=== PATIENT | female | born 1980 | race Caucasian/White ===

== ENCOUNTER 2023-10-23 00:06 | Emergency (ER) | payer OTHER, SELFPAY ==
[2023-10-23 00:14] VITALS: BP 119/102; BMI 39.2
--- NOTE | 2023-10-23 00:15 | ED.GENMED ---
History of Present Illness
General
Chief Complaint: Change in Mental Status
Time Seen by Provider: 10/23/23 00:15
Travel History
Have you had any contact with someone who has COVID-19?: No
Do you have any symptoms of coronavirus? Fever > 100 degrees, chills, cough, shortness of breath, sore throat, loss of taste or smell, muscle aches, or headache?: No
History of Present Illness
History of Present Illness:
HPI: Patient came in by ambulance from a care home. She reportedly was seen outside on the yard rolling on the ground. She was brought back inside and EMS spoke to her but she was 'slightly confused'. She no longer has been taking Adderall
however she admits to taking 2 Adderall tonight. Took some Tylenol earlier for generalized pain.
EXAM:
GENERAL: Well appearing in no distress
HEENT: Moist oral mucosa, borderline mydriasis noted
CARDIOVASCULAR: No murmurs, normal heart rate, regular rhythm, No chest wall tenderness
PULMONARY: No respiratory distress, breath sounds are clear and equal
ABDOMEN: Soft with no peritoneal signs, no tenderness
NEUROLOGIC: Excellent strength all extremities, no coordination deficits
PSYCHIATRIC: Appropriate mental status, reasonable insight and judgement, there may be some very mild cognitive deficits but overall she appears to have the capacity to make her own decisions
EXTREMITIES: Nontender, no edema, moves all extremities equally
SKIN: The patient is transiently diaphoretic
TIME OF INITIAL ENCOUNTER: 12:15 AM
NUMBER AND COMPLEXITY OF PROBLEMS ADDRESSED AT THE ENCOUNTER
� Chronic conditions affecting care: Former smoker, high blood pressure, history of substance abuse
� Acute Exacerbation and/or Progression of Chronic Illness: This is an acute problem
� Differential Diagnosis includes: Change in mental status related to substance use, hypoglycemia, electrolyte abnormality
AMOUNT AND/OR COMPLEXITY OF DATA TO BE REVIEWED AND ANALYZED
� I performed an independent evaluation of and my interpretation is:
EKG:
CT:
X-rays:
Laboratory Studies: CBC unremarkable, chemistries relatively unremarkable, Tylenol/aspirin negative, UDS positive for methadone and amphetamine
Other:
� Review of other/old records: No old records available for review in [facility]
� Clinical information was obtained by an independent historian: EMS; we did contact somebody from the care home and then also the patient left message with Jenny, however as of now, we have been unsuccessful with
speaking to anybody else.
� Prescriptions/Medications Considered but not given:
� Further testing considered but not performed:
RISK OF COMPLICATIONS AND/OR MORBIDITY OR MORTALITY OF PATIENT MANAGEMENT
� Social determinants of health affecting care: Lives at a care home
� Discussion with other providers:
� Escalation of care including admission/observation vs risk of discharge considered: For the most part, patient's mental status appropriate. Basic labs relatively unremarkable. UDS is positive for amphetamine and methadone.
Symptoms may have been related to taking the 2 Adderall's. Basic labs relatively unremarkable. On reassessment at 2 AM, the patient appears to have appropriate mental status. Given the diaphoresis, IV fluids have been ordered. However labs are
relatively unremarkable. She has appropriate mental status for the most part. We did try to contact staff at the care home.
Phy Exam
Physical Exam
Physical Exam:
See HPI
Course
Orders/Labs/Results
Orders:
Orders
10/23/23 00:28
Alcohol Urgent
Complete Blood Count/With Diff Urgent
Comprehensive Metabolic Panel Urgent
Salicylate Urgent
Tylenol [Acetaminophen] Urgent
10/23/23 00:55
Fentanyl, Urine Urgent
Urine Drug Abuse Screen Urgent
Date Specimen was Collected: 10/23/23
Time Specimen was Collected: 00:54
10/23/23 01:55
Add On- LAB Urgent
Tests Added?: alcohol
10/23/23 02:10
0.9% Sodium Chloride 1000 ml [Nss] 1,000 ml IV BOLUS
Abnormal Lab Results
10/23/23 10/23/23
00:28 00:55
MCHC 32.0 L g/dL
(33.0-37.0)
BUN 30 H mg/dl
(7-17)
Glucose 101 H mg/dl
(70-99)
AST 52 H U/L
(14-36)
Total Protein 8.4 H g/dl
(6.3-8.2)
Salicylates < 1.0 L mg/dl
(2.0-20.0)
Urine Methadone Screen Positive H
(Negative)
Acetaminophen < 10 L ug/ml
(10-30)
Ur Amphetamines Screen Positive H
(Negative)
10/23/23 00:28
10/23/23 00:28
Vital Signs
Initial and Last Documented VS:
Initial Vital Signs
Temp Pulse Resp BP Pulse Ox
97.8 F 92 20 119/102 96
10/23/23 00:14 10/23/23 00:14 10/23/23 00:14 10/23/23 00:14 10/23/23 00:14
Last Documented Vital Signs
Temp Pulse Resp BP Pulse Ox
97.8 F 98 20 148/89 99
10/23/23 00:14 10/23/23 06:29 10/23/23 06:29 10/23/23 02:01 10/23/23 06:29
*Critical Care Note
Total Time (30-74mins, 75-104mins- exclusive of procedures): Not Applicable
ED Attending Note
-
Portions of this chart may have been created with voice recognition software.� Occasional wrong word or��sound alike� substitutions may have occurred due to the inherent limitations of voice recognition software.
Discharge Plan
Departure
Patient Disposition: Home (Routine Discharge)
Date of Disposition: 10/23/23
Time of Disposition: 02:34
Patient with high blood pressure during this ER visit?: Yes
Discharge Problem:
Acute alteration in mental status
Instructions: Altered Mental Status (DC)
Referrals:
Perico Interiano MD [Family Provider] -
Activity Restrictions/Additional Instructions:
Urine drug screen is positive for amphetamine and methadone. Tylenol and salicylate levels are undetected. Other basic labs unremarkable.
Interventions
Interventions:
*Risk Screen - Suicide Last Done: 10/23/23 00:08
*General Assessment Last Done: 10/23/23 00:08
*Neglect/Abuse Screening Last Done: 10/23/23 00:08
ED- Fall Risk Assessment Last Done: 10/23/23 00:15
*ED COVID-19 Vaccine History Last Done: 10/23/23 00:08
*Nursing Disposition Last Done: 10/23/23 06:29
ED- Neurological Assessment Last Done: 10/23/23 00:41
ED Swallowing Screen Last Done: 10/23/23 00:41
Discharge Date and Time
Discharge Date/Time: 10/23/23 06:54
Print Language: [place]
[2023-10-23 00:54] LABS: ALT (SGPT) 33 U/L (0-35); AST (SGOT) 52 U/L (14-36); Acetaminophen < 10 ug/ml (10-30); Alkaline Phosphatase 94 U/L (38-126); Blood Urea Nitrogen 30 mg/dl (7-17); Carbon Dioxide 26 mmol/L (22-30); Chloride 106 mmol/L (98-107); Estimated Creatinine Clearance 104 ml/min; Glucose 101 mg/dl (70-99); Potassium 3.8 mmol/L (3.5-5.1); Salicylate < 1.0 mg/dl (2.0-20.0); Sodium 143 mmol/L (135-145); Total Bilirubin 0.6 mg/dl (0.2-1.3); Total Protein 8.4 g/dl (6.3-8.2); eGFR > 60.00
[2023-10-23 01:00] VITALS: BP 140/107
[2023-10-23 01:14] LABS: % Basophils 0.6 % (0-2); % Eosinophils 2.1 % (0-6); % Immature Granulocytes 0.3 % (0-0.5); % Lymphocytes 26.1 % (20.5-51.1); % Monocytes 8.4 % (1.7-9.3); % Neutrophils 62.5 % (42.2-75.2); Absolute Eosinophils 0.1 10^3/uL (0-0.7); Absolute Lymphocytes 1.8 10^3/uL (1.2-3.4); Absolute Monocytes 0.6 10^3/uL (0.1-0.6); Absolute Neutrophils 4.3 10^3/uL (1.4-6.5); Hematocrit 41.5 % (37.0-47.0); Hemoglobin 13.3 g/dL (12.0-16.0); Mean Corpuscular Hgb 28.3 pg (27.0-31.0); Mean Corpuscular Volume 88.3 fL (81.0-99.0); Mean Platelet Volume 9.3 fL (7.4-10.4); Nucleated Red Blood Cells % 0 %; Platelet Count 329 10^3/uL (130-400); Red Cell Dist. Width 12.9 % (11.5-14.5); White Blood Cell Count 6.8 10^3/uL (4.8-10.8)
[2023-10-23 01:22] LABS: Amphetamines Positive (Negative); Barbiturates Negative (Negative); Benzodiazepines Negative (Negative); Buprenorphine Negative (Negative); Cocaine Negative (Negative); Marijuana Negative (Negative); Methadone Positive (Negative); Methamphetamines Negative (Negative); Opiates Negative (Negative); Phencyclidine Negative (Negative); Tricyclic Antidepressants Negative (Negative)
[2023-10-23 01:30] LABS: Fentanyl, Urine Negative (Negative)
[2023-10-23 02:01] VITALS: BP 148/89
[2023-10-23 03:12] LABS: Alcohol None Detected
== END 2023-10-23 06:54 | disposition home or self-care (01) ==
LOC: EMR 00:06
PROVIDERS: EMERGENCY PHYSICIAN Emergency Medicine; FAMILY PHYSICIAN Family Medicine
DX: R41.82 Altered mental status, unspecified (principal); R61 Generalized hyperhidrosis; R03.0 Elevated blood-pressure reading, without diagnosis of hypertension; Z87.891 Personal history of nicotine dependence; Z88.0 Allergy status to penicillin
CPT/HCPCS: 99283; 80053; 80143; 80179; 80306; 80307; 82077; 85025